=== PATIENT | female | born 1955 | race Caucasian/White ===

== ENCOUNTER 2017-05-13 10:11 | Emergency (ER) | payer MEDICAID ==
--- NOTE | 2017-05-13 10:24 | Emergency Department Record ---
History of Present Illness - General Chief Complaint: Dizziness Stated Complaint: DIZZY Time Seen by Provider: 05/13/17 10:22 Source: Patient Mode of Arrival: Ambulatory Limitations: No limitations - History of Present Illness Initial Comments: 61 yo female presents feeling dizzy at times. The symptoms started about 2-3 weeks ago. She saw her PCP at that time. She initially improved for several days. The symptoms returned on . She states turning her head to the left and sometimes tilting back causes the dizziness. No new headaches, vision changes, weakness, coordination changes, speech, or vision changes. She has had vertigo in the past. PCP is in [facility]. She has chronic neck pain that is unchanged. He symptoms are mild or gone if still then return with the position changes noted MD Complaint: Dizziness, Lightheadedness -: Days(s) (3) Timing: Sudden onset Description: Lightheadedness, "Room spinning", Sense of movement History of Same: Yes History of Trauma: No Severity: Moderate Improves With: Remaining still Worsens With: Movement Associated Symptoms: Denies other symptoms - [place] Coma Scale Eye Response: (4) Open spontaneously Motor Response: (6) Obeys commands Verbal Response: (5) Oriented Manny Total: 15 - Related Data Home Medications Medication Instructions Recorded Confirmed Last Taken Alendronate Sodium [Fosamax] 70 mg PO WEEKLY 05/13/17 05/13/17 05/11/17 Previous Rx's Medication Instructions Recorded Beclomethasone Dipropionate [Qvar] 1 puff IH BID #1 11/25/14 Hydrocodone/Acetaminophen [[place] 1 tab PO Q8H PRN #15 tab 09/09/15 5mg/325mg] Albuterol Sulfate [Proair Hfa] 1 - 2 puff IH .EVERY 4-6 HOURS PRN 09/16/15 #1 inhaler Allergies Allergy/AdvReac Type Severity Reaction Status Date / Time tramadol AdvReac Intermediate VOMITING Verified 05/13/17 10:18 Review of Systems Constitutional: Denies: Chills, Fever, Malaise, Weakness Eyes: Denies: Eye discharge, Eye pain, Photophobia, Vision change ENT: Denies: Congestion, Throat pain Respiratory: Denies: Cough, Dyspnea, Hemoptysis, Stridor, Wheezes Cardiovascular: Denies: Chest pain, Palpitations, Syncope Endocrine: Denies: Fatigue, Polydipsia Gastrointestinal: Denies: Abdominal pain, Constipation, Diarrhea, Hematemesis, Hematochezia Genitourinary: Denies: Dysuria, Frequency, Hematuria, Urgency Musculoskeletal: Denies: Arthralgia, Back pain, Joint swelling, Myalgia Skin: Denies: Bruising, Change in color, Rash Neurological: Reports: Vertigo. Denies: Abnormal gait, Confusion, Numbness, Paresthesias, Seizure, Tingling, Tremors Psychiatric: Denies: Anxiety Hematological/Lymphatic: Denies: Anemia, Blood Clots, Easy bleeding, Easy bruising, Swollen glands Past Medical History - SOCIAL HISTORY Smoking Status: Current every day smoker - RESPIRATORY Hx Respiratory Disorders: Yes Hx COPD: Yes Hx Pneumonia: Yes - CARDIOVASCULAR Hx Cardio Disorders: No - NEURO Hx Neuro Disorders: Yes Hx Headaches: Yes Hx Parkinson's Disease: Yes Hx TIA: Yes - GI Hx GI Disorders: Yes Hx Reflux: Yes - Hx Genitourinary Disorders: Yes Comment:: cyst on kidneys, occasionally pass blood through urine - ENDOCRINE Hx Endocrine Disorders: Yes Hx Thyroid Disease: Yes (cancer) - MUSCULOSKELETAL Hx Musculoskeletal Disorders: Yes Hx Osteoporosis: Yes - PSYCH Hx Psych Problems: No - HEMATOLOGY/ONCOLOGY Hx Hematology/Oncology Disorders: Yes Hx Anemia: Yes Hx Cancer: Yes (thyroid and lymph nodes) Hx Radiation Therapy: Yes Family Medical History Hx Cancer: Father, Mother, Brother/Sister Hx Seizures: Brother/Sister *Seizure Comment: brother had epilectic Physical Exam - General General Appearance: Alert, Oriented x3, Cooperative, No acute distress Limitations: No limitations - Head Head exam: Atraumatic, Normocephalic, Normal inspection - Eye Eye exam: Normal appearance, PERRL, EOMI, Nystagmus (rapid to the left, brief and fatigues). negative: Conjunctival injection, Periorbital swelling, Scleral icterus Pupils: Normal accommodation. negative: Irregular, Unequal - ENT ENT exam: Normal exam, Mucous membranes moist, Normal orophraynx, TM's normal bilaterally Ear exam: Normal external inspection Nasal Exam: Normal inspection Mouth exam: Normal external inspection Teeth exam: Normal inspection Throat exam: Normal inspection - Neck Neck exam: Normal inspection, Full ROM. negative: Tenderness - Respiratory Respiratory exam: Normal lung sounds bilaterally. negative: Respiratory distress - Cardiovascular Cardiovascular Exam: Regular rate, Normal rhythm, Normal heart sounds. negative : Diastolic murmur, Systolic murmur, Tachycardia Peripheral Pulses: 2+: Radial (R), Radial (L) - GI/Abdominal GI/Abdominal exam: Soft. negative: Tenderness - Rectal Rectal exam: Deferred - exam: Deferred - Extremities Extremities exam: Normal inspection, Full ROM, Normal capillary refill. negative: Tenderness - Back Back exam: Reports: Normal inspection, Full ROM. Denies: CVA tenderness (R), CVA tenderness (L), Muscle spasm, Rash noted, Tenderness - Neurological Neurological exam: Alert, CN II-XII intact, Normal gait, Oriented X3, Reflexes normal, Other (no PND, normal FTN, no dysmetria, steady gait). negative: Altered, Motor sensory deficit - Psychiatric Psychiatric exam: Normal affect, Normal mood. negative: Agitated, Anxious - Skin Skin exam: Dry, Intact, Normal color, Warm Course - Reevaluation(s) Reevaluation #1: The EMR was reviewed for prior visits Prior EKG reviewed 05/13/17 10:25 EMR reviewed. No prior imaging of head 05/13/17 10:38 Subacute 8mm hypodensity in the L internal capsule I informed the patient of the results She requests I call the hospital in [facility]. 05/13/17 12:00 05/13/17 12:19 I SW the patient's doctor, Dr Ortiz. He states that the patient has not had any comparison imaging to the head on his records. I enquired about transfer to [facility] as per the patient's request. He states that is not recommended due to no neurology. He stated if patient's have symptoms concerning for stroke there are routinely transferred out of [facility]. 05/13/17 12:32 EKG 12:22 NSR rate is 82, intervals normal, axis normal, ST no acute changes with non specific anterior T changes. No changes 08/2015. 05/13/17 12:47 The labs were reviewed. No acute changes on the CBC or CMP The patient selects [facility] for transfer. 05/13/17 12:[address] Coles of the [facility] ED He accepts the patient for further work up of the dizziness with the CT findings of possible subacute 8mm L internal capsule infarct Medical Decision Making - Lab Data Result diagrams: 05/13/17 12:05 05/13/17 12:05 Disposition Disposition: Transfer Clinical Impression: Dizziness Disposition: Acute Care Hospital Transfer Transfer To: [facility] Reason For Transfer: Dizziness Accepting Physician: Sanket Time Discussed w/Accepting Physician: 12:51 Condition: (2) Stable Instructions: Vertigo (ED), Dizziness (ED) Additional Instructions: Call your doctor first of the week for a recheck and close follow up Return if worse or any new symptoms or concerns. Forms: Patient Portal Access Time of Disposition: 12:51 Quality - Quality Measures Quality Measures: N/A - Blood Pressure Screening Does Patient Have Any of the Following: No Blood Pressure Classification: Pre-Hypertensive BP Reading Systolic Measurement: 127 Diastolic Measurement: 89 Screening for High Blood Pressure: < Pre-Hypertensive BP, F/U Documented > [ G8950] Pre-Hypertensive Follow-up Interventions: Referral to alternative/primary care provider.
[2017-05-13] MEDS ORDERED: MECLIZINE 25 MG TABLET PO ONE (10:35)
[2017-05-13] MEDS ORDERED: ASPIRIN 81 MG CHEWABLE TABLET PO ONE (12:03)
[2017-05-13 12:28] LABS: BASO % 0.6 % (0-6); EOS % 0.8 % (0-6); GRAN % 66.3 % (47-80); HEMATOCRIT 38.6 % (35.0-47.0); HEMOGLOBIN 13.1 gm/dl (11.6-16.0); LYMPH % 25.5 % (16-45); MEAN CELL VOLUME 91.9 fl (81-97); MEAN CORPUSCULAR HEMOGLOBIN 31.2 pg (27-33); MEAN CORPUSCULAR HGB CONC 33.9 g/dl (32-36); MEAN PLATELET VOLUME 10.7 fl (7.4-10.4); MONO % 6.8 % (0-9); PLATELET COUNT 139 K/uL (130-400); RED CELL DISTRIBUTION WIDTH 11.8 % (11.5-14.5); WHITE BLOOD COUNT W/O DIFF 6.5 K/uL (4.2-12.2)
[2017-05-13 12:38] LABS: INR 1.02
[2017-05-13 12:41] LABS: ALB/GLOB RATIO 1.9 (1.1-1.8); ALBUMIN 4.7 g/dL (4.0-5.0); ALKALINE PHOSPHATASE 67 U/L (35-104); ALT/SGPT 8 U/L (<33); AST/SGOT 16 U/L (10.0-35.0); BLOOD UREA NITROGEN 11 mg/dL (8-23); CREATININE 0.5 mg/dL (0.5-0.9); EST GLOMERULAR FILTRATION RATE > 60 mL/min; GLUCOSE,RANDOM 118 mg/dL (74-109); TOTAL PROTEIN 7.2 g/dL (6.6-8.7)
--- NOTE | 2017-05-15 07:25 | CT SCAN REPORT ---
DATE: 05/13/2017. EXAM: CT OF THE BRAIN WITHOUT CONTRAST. HISTORY: Lightheadedness and vertigo. TECHNIQUE: Sequential axial images were obtained from the foramen magna to the vertex without contrast administration. FINDINGS: There is a subacute/remote infarct of the anterior limb of the left internal capsule. The remainder of the brain and parenchyma appears normal. The orbits, paranasal sinuses, and mastoid air cells appear normal. IMPRESSION: 1. 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 THIS MEASURES 8.0 MM. 2. THE REMAINDER OF THE BRAIN APPEARS NORMAL. JOB NUMBER: [id number] MTDD
== END 2017-05-13 13:29 | disposition short-term general hospital (02) ==
LOC: ER 10:11
DX: I63.9 Cerebral infarction, unspecified (principal); R42 Dizziness and giddiness; F17.210 Nicotine dependence, cigarettes, uncomplicated; Z86.73 Personal history of transient ischemic attack (TIA), and cerebral infarction without residual deficits
CPT/HCPCS: 70450; 80053; 85025; 85610; 85730; 93005; 93010; 99285

== ENCOUNTER 2017-08-21 10:58 | Inpatient (IN) | payer MEDICAID ==
[2017-08-21] MEDS ORDERED: METHYLPREDNISOLONE PF 125MG/VIAL IVP ONE (11:08)
[2017-08-21] MEDS ORDERED: IPRATROPIUM/ALBUTEROL (0.5MG/3MG) NEB INH ONE (11:08)
--- NOTE | 2017-08-21 11:15 | Emergency Department Record ---
History of Present Illness - General Chief Complaint: Shortness of breath Stated Complaint: MARCELINA/COUGH Time Seen by Provider: 08/21/17 11:06 Source: Patient Mode of Arrival: Ambulatory Limitations: No limitations - History of Present Illness Initial Comments: The patient is here due to a one month hx of cough and SOB. She states the MARCELINA has been progressively worsening and now she is coughing up productive sputum. She denies any L sided CP, fever, chills, ST, or AP. She does have a hx of COPD and it feels similar to when she needed to stay in the hospital for her lung issues. She is on home O2 at 2 liters. She also is having anterior R sided CP with any coughing or deep breathing and twisting. MD Complaint: Cough Onset/Timin -: Month(s) Improves With: Nothing Worsens With: Nothing Known History Of: COPD, Other Associated Symptoms: Cough Treatments Prior to Arrival: None - Related Data Home Oxygen Therapy: Yes Home Oxygen Amount: 2 Liters Home Medications Medication Instructions Recorded Confirmed Last Taken Aspirin [Aspir-Low] 81 mg PO DAILY 08/21/17 08/21/17 Unknown Benzonatate [Tessalon] 1 cap PO Q8H PRN 08/21/17 08/21/17 Unknown Previous Rx's Medication Instructions Recorded Albuterol Sulfate [Proair Hfa] 1 - 2 puff IH .EVERY 4-6 HOURS PRN 09/16/15 #1 inhaler Allergies Allergy/AdvReac Type Severity Reaction Status Date / Time tramadol AdvReac Intermediate VOMITING Verified 08/21/17 11:04 Travel Screening - Travel/Exposure Within Last 30 Days Have you traveled within the last 30 days?: No Review of Systems Constitutional: Reports: Malaise. Denies: Chills, Fever Eyes: Denies: Eye discharge ENT: Reports: Congestion Respiratory: Reports: Cough, Dyspnea, Wheezes. Denies: Hemoptysis, Stridor Cardiovascular: Reports: Dyspnea on exertion. Denies: Arrhythmia, Chest pain Endocrine: Denies: Fatigue Gastrointestinal: Denies: Diarrhea Genitourinary: Denies: Dysuria Musculoskeletal: Denies: Back pain Past Medical History - SOCIAL HISTORY Smoking Status: Former smoker Alcohol Use: None Drug Use: None - RESPIRATORY Hx Respiratory Disorders: Yes Hx COPD: Yes Hx Pneumonia: Yes Comment:: emphysema - CARDIOVASCULAR Hx Cardio Disorders: No - NEURO Hx Neuro Disorders: Yes Hx Headaches: Yes Hx Parkinson's Disease: Yes Hx TIA: Yes - GI Hx GI Disorders: Yes Hx Reflux: Yes - Hx Genitourinary Disorders: Yes - ENDOCRINE Hx Endocrine Disorders: Yes Hx Thyroid Disease: Yes (cancer) - MUSCULOSKELETAL Hx Musculoskeletal Disorders: Yes Hx Osteoporosis: Yes - PSYCH Hx Psych Problems: No - HEMATOLOGY/ONCOLOGY Hx Hematology/Oncology Disorders: Yes Hx Anemia: Yes Hx Cancer: Yes (thyroid and lymph nodes) Hx Radiation Therapy: Yes Family Medical History Any Significant Family History?: Yes Hx Cancer: Father, Mother, Brother/Sister Hx Seizures: Brother/Sister *Seizure Comment: brother had epilectic Physical Exam - General General Appearance: Alert, Oriented x3, Cooperative, Mild distress (due to SOB.) - Head Head exam: Atraumatic, Normocephalic, Normal inspection - Eye Eye exam: Normal appearance - ENT Throat exam: Normal inspection. negative: Tonsillar erythema, Tonsillar exudate - Neck Neck exam: Normal inspection, Full ROM. negative: Tenderness - Respiratory Respiratory exam: Accessory muscle use (mild.), Chest wall tenderness (The R anterior chest wall pain is 100% reproducible with palpation.), Decreased breath sounds (mild.), Prolonged expiratory (mildly.), Respiratory distress, Wheezes (all lung farmer.). negative: Normal lung sounds bilaterally - Cardiovascular Cardiovascular Exam: Normal rhythm, Normal heart sounds, Tachycardia - GI/Abdominal GI/Abdominal exam: Soft, Normal bowel sounds. negative: Tenderness - Extremities Extremities exam: Normal inspection, Full ROM, Normal capillary refill. negative: Tenderness - Neurological Neurological exam: Alert. negative: Motor sensory deficit Course Vital Signs 08/21/17 11:00 Pulse Rate 109 H Respiratory 32 H Rate Blood Pressure 165/112 Pulse Ox 91 L - Reevaluation(s) Reevaluation #1: The patient is doing a little better but is still coughing and dyspneic. Her RR has improved and her HR is lower. 08/21/17 11:57 Reevaluation #2: The patient is still dyspneic and wheezing on exam. She does not feel much better at this time. Due to her condition I did recommend hospital admission for further respiratory care and IV Abx's and she did agree. On exam her lungs are still tight with bilateral lower lobe wheezing. 08/21/17 12:15 Reevaluation #3: 08/21/17 12:20 I did discuss the case with Clary (IZABELA) and she does accept the admission for Dr. Young. Medical Decision Making - Data Complexity MDM Data: Labs Ordered and/or Reviewed, X-Ray Ordered and/or Reviewed, EKG Ordered and/or Reviewed - Lab Data Result diagrams: 08/21/17 11:11 08/21/17 11:11 - EKG Data -: EKG Interpreted by Me EKG: No Acute Changes, Unchanged From Previous - Radiology Data Radiology results: Report reviewed (CXR: Severe COPD, possible worsening of the lower lobe chronic interstitial reticular nodular pattern bilaterally.) Disposition Disposition: Admit Clinical Impression: COPD (chronic obstructive pulmonary disease) Qualifiers: COPD type: unspecified COPD Qualified Code(s): J44.9 - Chronic obstructive pulmonary disease, unspecified Pneumonia Qualifiers: Pneumonia type: due to unspecified organism Laterality: bilateral Lung location : lower lobe of lung Qualified Code(s): J18.9 - Pneumonia, unspecified organism Disposition: Still a Patient at [facility] Decision to Admit: Admit from ER Decision to Admit Date: 08/21/17 Decision to Admit Time: 12:20 Accepting Physician: Hector Time Discussed w/Accepting Physician: 12:20 Condition: (2) Stable Time of Disposition: 12:20 Quality - Quality Measures Quality Measures: N/A - Blood Pressure Screening View Details: Yes Does Patient Have Any of the Following: No Blood Pressure Classification: Hypertensive Reading Systolic Measurement: 165 Diastolic Measurement: 112 Screening for High Blood Pressure: < Pre-Hypertensive BP, F/U Documented > [ G8950] Pre-Hypertensive Follow-up Interventions: Referral to alternative/primary care provider.
[2017-08-21 11:17] LABS: BASO % 0.1 % (0-6); EOS % 0.1 % (0-6); GRAN % 79.5 % (47-80); HEMOGLOBIN 12.6 gm/dl (11.6-16.0); LYMPH % 11.2 % (16-45); MEAN CELL VOLUME 92.2 fl (81-97); MEAN CORPUSCULAR HEMOGLOBIN 29.8 pg (27-33); MEAN CORPUSCULAR HGB CONC 32.3 g/dl (32-36); MEAN PLATELET VOLUME 10.4 fl (7.4-10.4); MONO % 9.1 % (0-9); PLATELET COUNT 216 K/uL (130-400); RED BLOOD COUNT 4.23 M/uL (3.80-5.40); RED CELL DISTRIBUTION WIDTH 12.2 % (11.5-14.5); WHITE BLOOD COUNT W/O DIFF 14.1 K/uL (4.2-12.2)
[2017-08-21 11:31] LABS: BLOOD UREA NITROGEN 13 mg/dL (8-23)
[2017-08-21 11:32] LABS: CREATININE 0.5 mg/dL (0.5-0.9); EST GLOMERULAR FILTRATION RATE > 60 mL/min
[2017-08-21 11:34] LABS: GLUCOSE,RANDOM 108 mg/dL (74-109)
[2017-08-21] MEDS ORDERED: ALBUTEROL SULFATE (0.083%) 2.5 MG/3 ML NEB INH ONE ×2 (11:35→11:39)
[2017-08-21 11:48] LABS: CKMB 1.6 ng/mL (<3.77); CREATINE PHOSPHOKINASE 39 U/L (26-192)
[2017-08-21] MEDS ORDERED: CEFTRIAXONE SODIUM 1 GM in 0.9 % SODIUM CHLORIDE 100ML 100 ML IVPB ONE (12:12)
[2017-08-21] MEDS ORDERED: AZITHROMYCIN 500 MG in 0.9 % SODIUM CHLORIDE 250ML 250 ML IVPB ONE (12:13)
[2017-08-21] MEDS ORDERED: MAGNESIUM SULFATE 16 MEQ in 0.9 % SODIUM CHLORIDE 100ML 100 ML IV ONE (12:15)
[2017-08-21] MEDS ORDERED: ONDANSETRON HCL IV 4 MG/2 ML VIAL IVP ONE (12:24)
[2017-08-21] MEDS ORDERED: AZITHROMYCIN 500 MG in 0.9 % SODIUM CHLORIDE 250ML 250 ML IVPB SCH (14:26)
[2017-08-21] MEDS ORDERED: IBUPROFEN 400 MG TABLET PO PRN (14:26)
[2017-08-21] MEDS: IPRATROPIUM/ALBUTEROL (0.5MG/3MG) NEB INH SCH ×3 (14:42→21:46)
--- NOTE | 2017-08-21 15:11 | RADIOLOGY REPORT ---
EXAM: CHEST, TWO VIEWS HISTORY: DIFFICULTY IN BREATHING. MALAISE FOR ONE MONTH. COPD. TECHNIQUE: Upright PA and lateral views of the chest were obtained. Comparison: Two view chest radiographic examination dated 09/16/15. FINDINGS: The heart is not enlarged and the pulmonary vasculature is nondilated. There is marked hyperinflation of the lungs consistent with COPD. Mixed primarily reticular nodular opacities are noted in the lower lungs more pronounced than on the 09/16/15 examination. This may relate to progression of chronic interstitial changes though acute infiltrate or less likely edema superimposed on chronic interstitial change would be difficult to exclude. No gross lung consolidation nor pneumothorax. The costophrenic angles are somewhat blunted though this likely relates to hyperinflation. Post surgical changes are noted within the midline neck base. There are degenerative changes scattered throughout the visualized spine. IMPRESSION: 1. SEVERE HYPERINFLATION OF THE LUNGS CONSISTENT WITH COPD. 2. MIXED PRIMARILY RETICULAR NODULAR OPACITIES WITHIN THE LOWER LUNGS MORE PRONOUNCED THAN ON THE 09/16/15 EXAMINATION. THIS MAY RELATE TO PROGRESSION OF CHRONIC INTERSTITIAL CHANGE THOUGH A COMBINATION OF CHRONIC INTERSTITIAL CHANGE AND ACUTE INFILTRATE OR ATELECTASIS WOULD BE DIFFICULT TO EXCLUDE. JOB NUMBER: [id number] [facility]
[2017-08-21] MEDS: TOPIRAMATE 25MG TABLET PO SCH ×2 (16:38→21:48)
[2017-08-21] MEDS: PANTOPRAZOLE SODIUM 40 MG TABLET PO SCH (16:38)
[2017-08-21] MEDS: BENZONATATE 100 MG CAPSULE PO PRN (16:39)
[2017-08-21] MEDS: SIMVASTATIN 20 MG TABLET PO SCH (21:48)
[2017-08-21] MEDS: CEFTRIAXONE SODIUM 1 GM in 0.9 % SODIUM CHLORIDE 100ML 100 ML IVPB SCH (22:10)
[2017-08-22] MEDS: IPRATROPIUM/ALBUTEROL (0.5MG/3MG) NEB INH SCH ×5 (06:20→21:20)
[2017-08-22 06:39] LABS: HEMATOCRIT 33.4 % (35.0-47.0); HEMOGLOBIN 10.9 gm/dl (11.6-16.0); MEAN CELL VOLUME 92.5 fl (81-97); MEAN CORPUSCULAR HGB CONC 32.6 g/dl (32-36); MEAN PLATELET VOLUME 10.5 fl (7.4-10.4); PLATELET COUNT 192 K/uL (130-400); RED BLOOD COUNT 3.61 M/uL (3.80-5.40); RED CELL DISTRIBUTION WIDTH 12.3 % (11.5-14.5); WHITE BLOOD COUNT W/O DIFF 14.7 K/uL (4.2-12.2)
[2017-08-22 06:40] LABS: MEAN CORPUSCULAR HEMOGLOBIN 30.1 pg (27-33)
[2017-08-22] MEDS: LEVOTHYROXINE SODIUM 150 MCG TABLET PO SCH (06:47)
[2017-08-22] MEDS: PANTOPRAZOLE SODIUM 40 MG TABLET PO SCH ×2 (06:47→16:13)
[2017-08-22] MEDS: BENZONATATE 100 MG CAPSULE PO PRN (06:48)
[2017-08-22 06:58] LABS: ALB/GLOB RATIO 1.6 (1.1-1.8); ALBUMIN 4.3 g/dL (4.0-5.0); ALKALINE PHOSPHATASE 53 U/L (35-104); ALT/SGPT 8 U/L (<33); AST/SGOT 13 U/L (10.0-35.0); BLOOD UREA NITROGEN 16 mg/dL (8-23); CREATININE 0.5 mg/dL (0.5-0.9); EST GLOMERULAR FILTRATION RATE > 60 mL/min; GLUCOSE,RANDOM 104 mg/dL (74-109)
[2017-08-22] MEDS: ACETAMINOPHEN 500 MG TABLET PO PRN (07:59)
[2017-08-22] MEDS: CEFTRIAXONE SODIUM 1 GM in 0.9 % SODIUM CHLORIDE 100ML 100 ML IVPB SCH ×2 (09:48→23:21)
[2017-08-22] MEDS: ASPIRIN 81 MG TABEC PO SCH (09:48)
[2017-08-22] MEDS: TOPIRAMATE 25MG TABLET PO SCH ×3 (09:49→23:20)
[2017-08-22] MEDS ORDERED: METHYLPREDNISOLONE PF 125MG/VIAL IVP SCH (10:00)
[2017-08-22] MEDS: AZITHROMYCIN 500 MG in 0.9 % SODIUM CHLORIDE 250ML 250 ML IVPB SCH (12:17)
[2017-08-22] MEDS: METHYLPREDNISOLONE PF 125MG/VIAL IVP SCH ×2 (16:13→23:20)
[2017-08-22] MEDS: ENOXAPARIN 40 MG/0.4 ML SYR SQ SCH (16:15)
[2017-08-22] MEDS: SIMVASTATIN 20 MG TABLET PO SCH (23:19)
[2017-08-23] MEDS: IPRATROPIUM/ALBUTEROL (0.5MG/3MG) NEB INH SCH ×2 (05:40→09:15)
[2017-08-23] MEDS: LEVOTHYROXINE SODIUM 150 MCG TABLET PO SCH (06:17)
[2017-08-23] MEDS: METHYLPREDNISOLONE PF 125MG/VIAL IVP SCH (06:17)
[2017-08-23] MEDS: PANTOPRAZOLE SODIUM 40 MG TABLET PO SCH (06:17)
[2017-08-23] MEDS: BENZONATATE 100 MG CAPSULE PO PRN (06:57)
[2017-08-23] MEDS: ASPIRIN 81 MG TABEC PO SCH (09:09)
[2017-08-23] MEDS: TOPIRAMATE 25MG TABLET PO SCH (09:09)
[2017-08-23] MEDS: ENOXAPARIN 40 MG/0.4 ML SYR SQ SCH (09:09)
[2017-08-23] MEDS: CEFTRIAXONE SODIUM 1 GM in 0.9 % SODIUM CHLORIDE 100ML 100 ML IVPB SCH (09:10)
[2017-08-23] MEDS: ACETAMINOPHEN 500 MG TABLET PO PRN (09:12)
[2017-08-23] MEDS: AZITHROMYCIN 500 MG in 0.9 % SODIUM CHLORIDE 250ML 250 ML IVPB SCH (10:26)
--- NOTE | 2017-08-23 11:10 | History and Physical Report ---
DATE: 08/22/2017 at 1 p.m., physical done. CHIEF COMPLAINT: Cough, dyspnea, pneumonia, COPD. HISTORY OF PRESENT ILLNESS: This 62-year-old female states she has had a cough for about a month but much worse in the last 2 days. She uses home oxygen at 2L/min. She has been using that for one year. She was seen in the emergency department by Dr. Grant and admitted to the hospital for pneumonia, COPD, and hypoxia on oxygen. PAST MEDICAL HISTORY: COPD, GERD, hypercholesterolemia, migraines, hypothyroidism, osteoporosis. She also has had TIAs and Parkinson disease. Thoracic cancer, arthritis. She had thyroid and lymph node radiation. PAST SURGICAL HISTORY: Hysterectomy, appendectomy, breast biopsy x2. MEDICATIONS: 1. Topamax 1 tablet t.i.d. 2. Simvastatin 1 at bedtime. 3. Omeprazole 20 mg b.i.d. 4. Levothyroxine 150 mcg daily. 5. Vitamin D3, 50,000 units weekly. 6. Tessalon 1 capsule q.8 h. p.r.n. 7. Aspirin 81 mg daily. 8. Alendronate 70 mg weekly. 9. ProAir 2 puffs every 4-6 hours. ALLERGIES: TRAMADOL. FAMILY/PSYCHOSOCIAL HISTORY: Father, mother, brother, and sister had cancer. Brother and sister had seizures. Brother had epilepsy. She is a former cigarette smoker, quit in 2017. No alcohol or drug use. REVIEW OF SYSTEMS: HEENT: She has congestion and cough worse in the last 2 or 3 days but has had a cough for a month. Cardiovascular: No chest pain, palpitations, or arrhythmia. Respiratory: See Chief Complaint. She is coughing, congested, wheezing. Gastrointestinal: No nausea, vomiting, diarrhea, black stools, or bloody stools. Genitourinary: No dysuria, hematuria, frequency, or burning on urination. Musculoskeletal: No joint or bone abnormalities. Neurological: No CVA, paralysis, or paresthesias. Endocrine: No diabetes but she has hypothyroidism. Integument: No rash, ulcers, change in moles, or yellow skin. PHYSICAL EXAMINATION: VITALS: Height 5 feet 3 inches, weight 97 pounds. Temperature 97.7, pulse 71, blood pressure 113/70, respiratory rate 17, pulse ox 97% on room air. HEENT: Pupils are equal, round, and reactive to light and accommodation. Extraocular muscles are intact. Throat is clear. Nose is clear. Tympanic membranes are shen. NECK: Supple. No jugular venous distention. No hepatojugular reflux. No carotid bruits. Thyroid is smooth. CARDIOVASCULAR: Regular rate and rhythm without murmurs, clicks, rubs, or gallops. RESPIRATORY: Clear to auscultation and percussion. There is wheezing bilaterally on deep inspiration. ABDOMEN: Soft, nontender. No hepatosplenomegaly, no masses, no tenderness. Bowel sounds are active. No bruits. EXTREMITIES: No pitting edema. No cyanosis, no clubbing. Full range of motion. Peripheral pulses are good. BREASTS: Deferred. GYNECOLOGICAL: Exam deferred. RECTAL: Exam deferred. NEUROLOGIC: Cranial nerves II-XII intact. No gross defects. Sensation normal, strength normal. Deep tendon reflexes equal bilaterally with Babinski negative. MENTAL STATUS: Alert and oriented x3. IMPRESSION: 1. Pneumonia. 2. 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 3. Hypoxia with home oxygen at 2L/min nasal cannula for the last year. 4. Gastroesophageal reflux disease. 5. History of thyroid cancer. 6. History of hypercholesterolemia. 7. History of Parkinson disease. PLAN: IV Rocephin, azithromycin, and Solu-Medrol. MTDD
[2017-08-23] MEDS ORDERED: PREDNISONE 20 MG TAB PO ONE (13:11)
--- NOTE | 2017-08-23 13:20 | Discharge Note ---
VTE H&P Assessment - Risk for VTE Risk for VTE: Yes Risk Level: Low Risk Assessment Date: 08/22/17 Risk Assessment Time: 13:00 VTE Orders Placed or Will Be Placed: Yes Discharge Medications - Discharge Medications Home Medications: Ambulatory Orders Cholecalciferol (Vitamin D3) [Vitamin D3] 50,000 unit PO WEEKLY 09/28/14 [Last Taken 05/13/17] Omeprazole [Prilosec] 20 mg PO BID 09/28/14 [Last Taken 05/13/17] Simvastatin 1 tab PO QHS 09/28/14 [Last Taken 05/13/17] Topiramate 1 tab PO TID 09/28/14 [Last Taken 05/13/17] Levothyroxine Sodium [Synthroid] 150 mcg PO DAILY 06/21/15 [Last Taken 05/13/17] Albuterol Sulfate [Proair Hfa] 1 - 2 puff IH .EVERY 4-6 HOURS PRN #1 inhaler 10/27 [Last Taken 05/13/17] Alendronate Sodium [Fosamax] 70 mg PO WEEKLY 05/13/17 [Last Taken 05/11/17] Aspirin [Aspir-Low] 81 mg PO DAILY 08/21/17 [Last Taken Unknown] Azithromycin [Zithromax] 500 mg PO DAILY #10 tab 08/23/17 [Last Taken Unknown] Cephalexin [Keflex] 500 mg PO QID #40 cap 08/23/17 [Last Taken Unknown] Ibuprofen [Motrin] 400 mg PO Q8H PRN tablet 08/23/17 [Last Taken Unknown] Ipratropium/Albuterol [Duoneb] 3 ml INH RESP.Q4H.WA #120 ampul.neb 08/23/17 [ Last Taken Unknown] Prednisone [Prednisone 10Mg] 10 mg PO ASDIR #30 tab 08/23/17 [Last Taken Unknown ] Discharge Note - Date Date of Discharge Note: 08/23/17 Disposition: Home, Self-Care Condition: (2) Stable Additional Instructions: follow up with Dr. Ortiz in one week robitussin DM 10 ml every 4 fours continue home oxygen 2 liters per minute Prescriptions: Azithromycin [Zithromax] 500 mg PO DAILY #10 tab Cephalexin [Keflex] 500 mg PO QID #40 cap Ipratropium/Albuterol [Duoneb] 3 ml INH RESP.Q4H.WA #120 ampul.neb Prednisone [Prednisone 10Mg] 10 mg PO ASDIR #30 tab Forms: Patient Portal Access Activity at Discharge: Increase Activity as Tolerated
--- NOTE | 2017-08-24 12:40 | Discharge Summary ---
DATE OF ADMISSION: 08/21/2017 DATE OF DISCHARGE: 08/23/2017 DISCHARGE DIAGNOSES: 1. Pneumonia. 2. COPD. 3. Interstitial lung disease. 4. Hypoxia, on oxygen at 2 liters per minute nasal cannula. 5. Status post hypothyroidism. 6. Status post hypercholesterolemia. 7. Status post GERD. 8. Status post Parkinson's disease. 9. Status post history of thyroid cancer. ATTENDING PHYSICIAN: Sam Peterson DO REASON FOR HOSPITALIZATION: Cough, dyspnea, [id number]. HISTORY: This 62-year-old female stated that she had a cough for about a month, but worse in the last 2 days. She uses home oxygen at 2 liters per minute nasal cannula for about the last year. She was seen in the Emergency Department by Dr. Grant and admitted to the hospital for pneumonia, COPD, hypoxia, and placed on oxygen therapy. SIGNIFICANT FINDINGS: Chest x-ray showing severe hyperinflation of the lungs consistent with COPD. Mixed primary reticular nodular opacities within the lower lungs, more pronounced on 09/16/2015. This may relate to progression of chronic interstitial changes, although a combination of chronic interstitial change and acute infiltrate or atelectasis would be difficult to exclude. EKG showing sinus tachycardia. No acute ST/T-wave changes. LABORATORY: WBC was 14,100, hemoglobin was 12.6, dropped down to 10.9 after hydration. Potassium was 3.9, BUN is 16, creatinine is 0.5. Cardiac enzymes x 1 were negative. THERAPY PROVIDED: The patient was placed on Rocephin 1 gram every 12 hours, azithromycin 500 mg daily, Solu-Medrol initially 125 in the ER then 60 mg every 8 hours switched over to oral prednisone, and Keflex and azithromycin on discharge. She had oxygen therapy. She also had breathing treatments with DuoNebs every 4 hours and albuterol every 1 hour p.r.n. She had DVT prophylaxis of Lovenox, and she continued her home medications. HOSPITAL COURSE: Gradually improved. CONDITION AT DISCHARGE: Improved, but still not completely better, and [id number] if she walks a distance. DISCHARGE INSTRUCTIONS: Follow up with Dr. Ortiz in 1 week. Robitussin-DM 10 mL every 4 hours. Continue the home oxygen at 2 liters per minute. Azithromycin 500 mg for 10 days. Keflex 500 q.i.d. for 10 days. DuoNebs every 4 hours while awake. If she cannot afford a DuoNeb with her insurance, I would just use albuterol every 4 hours while awake. Prednisone 40 mg a day for 3 days, then 30 mg a day for 3 days, then 20 mg a day for 3 days, and then 10 mg a day for 3 days. Increase activity as tolerated. MTDD
== END 2017-08-23 15:15 | disposition home or self-care (01) | DRG 194 ==
LOC: ER 10:58 → MEDSURG 13:58
PROVIDERS: ADMIT Internal Medicine; ATTEND Emergency Medicine
DX: J18.9 Pneumonia, unspecified organism (principal); J44.1 Chronic obstructive pulmonary disease with (acute) exacerbation; J84.10 Pulmonary fibrosis, unspecified; K21.9 Gastro-esophageal reflux disease without esophagitis; Z85.850 Personal history of malignant neoplasm of thyroid; E78.00 Pure hypercholesterolemia, unspecified; G20 Parkinson's disease; E03.9 Hypothyroidism, unspecified; Z87.891 Personal history of nicotine dependence
CPT/HCPCS: 71046; 80048; 80053; 82550; 82553; 84484; 85025; 85027; 93005; 93010; 94640; 94761; 96365; 96366; 96368; 96375; 99223; 99239; 99285; J0456; J1650; J2405; J2930; J7050; J7512; J7613

== ENCOUNTER 2018-08-24 10:37 | Emergency (ER) | payer MEDICAID ==
--- NOTE | 2018-08-24 11:05 | Emergency Department Record ---
History of Present Illness - General Chief Complaint: Cough Stated Complaint: BRONCHITIS Time Seen by Provider: 08/24/18 10:54 Source: Patient Mode of Arrival: Ambulatory - History of Present Illness Initial Comments: the patient states that she has had cold symptoms for about one week. She has COPD and is on home O2 for the past 2 years. She states her sputum has changed color to yellow for the past 2 days, and that her right chest hurts when she coughs. She denies fevers, but feels chilled. Monday night, 2 nights ago, she states she was on the phone, got up to hang up the phone, and became dizzy with the room spinning. She hit her right shoulder and right orbit on the bed and the bedpost. She denies any vision changes, eye pain, or difficulty with ROM of her shoulder, "I know they are just bruised and don't need x-rays." She has not been dizzy since then. She states that one year ago she had pneumonia and was hospitalized here. She denies KS, PE, DVT, history. She has had mini strokes in the past. She is a former heavy smoker who quit 2 years ago. Complaint: Cough, Rhinorrhea Onset/Timin -: Week(s) Severity: Mild Severity scale (1-10): 3 - Related Data Previous Rx's Medication Instructions Recorded Albuterol Sulfate [Proair Hfa] 1 - 2 puff IH .EVERY 4-6 HOURS PRN 09/16/15 #1 inhaler Ibuprofen [Motrin] 400 mg PO Q8H PRN tablet 08/23/17 Ipratropium/Albuterol [Duoneb] 3 ml INH RESP.Q4H.WA #120 ampul.neb 08/23/17 Azithromycin [Zithromax] 250 mg PO DAILY #6 tab 08/24/18 Prednisone [Prednisone 20Mg] 20 mg PO DAILY #20 tab 08/24/18 Allergies Allergy/AdvReac Type Severity Reaction Status Date / Time tramadol AdvReac Intermediate VOMITING Verified 08/21/17 11:04 Travel Screening - Travel/Exposure Within Last 30 Days Have you traveled within the last 30 days?: No - Travel Symptoms Symptom Screening: None Review of Systems Reviewed: No additional complaints except as noted below Constitutional: Reports: As per HPI. Denies: Chills, Fever, Malaise, Night sweats, Weakness, Weight change Eyes: Reports: As per HPI. Denies: Eye discharge, Eye pain, Photophobia, Vision change ENT: Reports: As per HPI. Denies: Congestion, Dental pain, Ear pain, Epistaxis , Hearing loss, Throat pain Respiratory: Reports: As per HPI. Denies: Cough, Dyspnea, Hemoptysis, Stridor, Wheezes Cardiovascular: Reports: As per HPI. Denies: Arrhythmia, Chest pain, Dyspnea on exertion, Edema, Murmurs, Orthopnea, Palpitations, Paroxysmal nocturnal dyspnea, Rheumatic Fever, Syncope Endocrine: Reports: As per HPI. Denies: Fatigue, Heat or cold intolerance, Polydipsia, Polyuria Gastrointestinal: Reports: As per HPI. Denies: Abdominal pain, Constipation, Diarrhea, Hematemesis, Hematochezia, Melena, Nausea, Vomiting Genitourinary: Reports: As per HPI. Denies: Abnormal menses, Discharge, Dyspareunia, Dysuria, Frequency, Hematuria, Incontinence, Retention, Urgency Musculoskeletal: Reports: As per HPI. Denies: Arthralgia, Back pain, Gout, Joint swelling, Myalgia, Neck pain Skin: Reports: As per HPI. Denies: Bruising, Change in color, Change in hair/ nails, Lesions, Pruritus, Rash Neurological: Reports: As per HPI. Denies: Abnormal gait, Confusion, Headache, Numbness, Paresthesias, Seizure, Tingling, Tremors, Vertigo, Weakness Psychiatric: Reports: As per HPI. Denies: Anxiety, Auditory hallucinations, Depression, Homicidal thoughts, Suicidal thoughts, Visual hallucinations Hematological/Lymphatic: Reports: As per HPI. Denies: Anemia, Blood Clots, Easy bleeding, Easy bruising, Swollen glands Past Medical History - SOCIAL HISTORY Smoking Status: Former smoker Alcohol Use: None Drug Use: None - RESPIRATORY Hx Respiratory Disorders: Yes Hx COPD: Yes Hx Pneumonia: Yes Comment:: emphysema,wears oxygen cont - CARDIOVASCULAR Hx Cardio Disorders: No - NEURO Hx Neuro Disorders: Yes Hx Headaches: Yes Hx Parkinson's Disease: Yes (2000) Hx TIA: Yes Comment:: pt states hx mini stroke - GI Hx GI Disorders: Yes Hx Reflux: Yes - Hx Genitourinary Disorders: Yes Comment:: cyst on kidneys, occasionally pass blood through urine - ENDOCRINE Hx Endocrine Disorders: Yes Hx Thyroid Disease: Yes (cancer) - MUSCULOSKELETAL Hx Musculoskeletal Disorders: Yes Hx Osteoporosis: Yes - PSYCH Hx Psych Problems: No - HEMATOLOGY/ONCOLOGY Hx Hematology/Oncology Disorders: Yes Hx Anemia: Yes Hx Cancer: Yes (thyroid and lymph nodes) Hx Radiation Therapy: Yes Family Medical History Any Significant Family History?: Yes Hx Cancer: Father, Mother, Brother/Sister Hx Seizures: Brother/Sister *Seizure Comment: brother had epilectic Physical Exam - General General Appearance: Alert, Oriented x3, Cooperative, No acute distress (speaks full sentences without difficulty, cachectic and frail on home oxygen) - Head Head exam: Normal inspection - Eye Eye exam: Normal appearance, PERRL, EOMI. negative: Conjunctival injection, Nystagmus Pupils: Normal accommodation - ENT ENT exam: Normal exam, Mucous membranes moist, Normal external ear exam, Normal orophraynx, TM's normal bilaterally Ear exam: Normal external inspection. negative: External canal tenderness Nasal Exam: Normal inspection. negative: Discharge, Sinus tenderness Mouth exam: Normal external inspection, Tongue normal Teeth exam: Normal inspection. negative: Dental caries Throat exam: Normal inspection. negative: Tonsillar erythema, Tonsillar exudate - Neck Neck exam: Normal inspection, Full ROM. negative: Lymphadenopathy, Meningismus , Tenderness - Respiratory Respiratory exam: Decreased breath sounds, Prolonged expiratory, Other (oxygen 2 liters nasal cannula). negative: Accessory muscle use, Chest wall tenderness , Respiratory distress - Cardiovascular Cardiovascular Exam: Regular rate, Normal rhythm, Normal heart sounds - GI/Abdominal GI/Abdominal exam: Soft, Normal bowel sounds. negative: Tenderness - Rectal Rectal exam: Deferred - exam: Deferred - Extremities Extremities exam: Normal inspection, Full ROM, Normal capillary refill. negative: Calf tenderness, Pedal edema, Tenderness - Back Back exam: Reports: Normal inspection, Full ROM. Denies: CVA tenderness (R), CVA tenderness (L), Muscle spasm, Rash noted, Tenderness - Neurological Neurological exam: Alert, CN II-XII intact, Normal gait, Oriented X3, Reflexes normal. negative: Motor sensory deficit - Psychiatric Psychiatric exam: Normal affect, Normal mood - Skin Skin exam: Dry, Intact, Normal color, Warm Course Vital Signs 08/24/18 10:40 Temperature 97.4 F L Pulse Rate 83 Respiratory 18 Rate Blood Pressure 119/78 Pulse Ox 97 - Reevaluation(s) Reevaluation #1: 08/24/18 13:15 Patient is feeling better and ready for DC home. She states she usally gets a prednisone taper and zPack when she is like this. She will follow up with her PCP next week as needd. Medical Decision Making - Management Options MDM Management: No Additional Work-up Planned - Data Complexity MDM Data: Labs Ordered and/or Reviewed, X-Ray Ordered and/or Reviewed (CXR Negative for acute abnormality per Radiologist. Hyperinflation.), EKG Ordered and/or Reviewed - Lab Data Result diagrams: 08/24/18 11:49 08/24/18 11:49 Disposition Disposition: Discharge Clinical Impression: Bronchitis COPD (chronic obstructive pulmonary disease) Qualifiers: COPD type: COPD with acute exacerbation Qualified Code(s): J44.1 - Chronic obstructive pulmonary disease with (acute) exacerbation Disposition: Home, Self-Care Condition: (2) Stable Instructions: Cold Symptoms (ED) Additional Instructions: Take antibiotics as directed until gone. Continue present meds and nebulizers as instructed. Take prednisone taper as directed: 3 pills daily for 3 days, 2 pills daily for 3 days, 1 pill daily for 3 days, then 1/2 pill daily for 4 days and stop. Follow up with your PCP next week as needed. Prescriptions: Azithromycin [Zithromax] 250 mg PO DAILY #6 tab Prednisone [Prednisone 20Mg] 20 mg PO DAILY #20 tab Quality - Quality Measures Quality Measures: N/A - Blood Pressure Screening Does Patient Have Any of the Following: No Blood Pressure Classification: Normal BP Reading Systolic Measurement: 119 Diastolic Measurement: 78 Screening for High Blood Pressure: < Normal BP, F/U Not Required > [[id number]]
[2018-08-24] MEDS ORDERED: IPRATROPIUM/ALBUTEROL (0.5MG/3MG) NEB INH ONE (11:07)
[2018-08-24] MEDS ORDERED: METHYLPREDNISOLONE PF 125MG/VIAL IVP ONE (11:07)
[2018-08-24 11:52] LABS: HEMATOCRIT 40.4 % (35.0-47.0); HEMOGLOBIN 13.1 gm/dl (11.6-16.0); MEAN CELL VOLUME 95.3 fl (81-97); MEAN CORPUSCULAR HEMOGLOBIN 30.9 pg (27-33); MEAN CORPUSCULAR HGB CONC 32.4 g/dl (32-36); PLATELET COUNT 140 K/uL (130-400); RED BLOOD COUNT 4.24 M/uL (3.80-5.40); RED CELL DISTRIBUTION WIDTH 11.9 % (11.5-14.5); WHITE BLOOD COUNT W/O DIFF 12.1 K/uL (4.2-12.2)
[2018-08-24 12:01] LABS: BLOOD UREA NITROGEN 12 mg/dL (8-23); CREATININE 0.6 mg/dL (0.5-0.9); EST GLOMERULAR FILTRATION RATE > 60 mL/min; TOTAL PROTEIN 8.2 g/dL (6.6-8.7)
[2018-08-24 12:03] LABS: URINE APPEARANCE CLEAR; URINE BILIRUBIN NEGATIVE (NEGATIVE); URINE BLOOD TRACE-I (NEGATIVE); URINE COLOR YELLOW; URINE GLUCOSE (UA) NEGATIVE (NEGATIVE); URINE KETONE TRACE (NEGATIVE); URINE LEUKOCYTE ESTERASE NEGATIVE (NEGATIVE); URINE NITRITE NEGATIVE (NEGATIVE); URINE PROTEIN NEGATIVE (NEGATIVE)
[2018-08-24 12:03] LABS: GLUCOSE,RANDOM 85 mg/dL (74-109)
[2018-08-24 12:06] LABS: ALB/GLOB RATIO 1.6 (1.1-1.8); ALBUMIN 5.1 g/dL (4.0-5.0); ALKALINE PHOSPHATASE 68 U/L (45-87); ALT/SGPT 7 U/L (<33); AST/SGOT 14 U/L (10.0-35.0)
[2018-08-24 12:15] LABS: URINE BACTERIA NONE SEEN; URINE EPITHELIAL CELLS 0 - 2 (FEW); URINE RBC NONE SEEN (NONE SEEN); URINE WBC NONE SEEN (0-2/hpf)
--- NOTE | 2018-08-25 21:34 | RADIOLOGY REPORT ---
EXAM: CHEST 2 VIEWS HISTORY: DIFFICULTY IN BREATHING. TECHNIQUE: Frontal and lateral views of the chest were performed. COMPARISON: 08/21/2017. FINDINGS: Heart size is normal. The lungs are hyperinflated. There is underlying emphysema. No superimposed infiltrate or pleural effusion. The osseous structures are normal. IMPRESSION: HYPERINFLATED LUNGS WITH UNDERLYING EMPHYSEMA. NO SUPERIMPOSED INFILTRATE OR PLEURAL EFFUSION. JOB NUMBER: [id number] [facility]
== END 2018-08-24 13:30 | disposition home or self-care (01) ==
LOC: ER 10:37
DX: J44.1 Chronic obstructive pulmonary disease with (acute) exacerbation (principal); J20.9 Acute bronchitis, unspecified; J44.0 Chronic obstructive pulmonary disease with (acute) lower respiratory infection; R06.00 Dyspnea, unspecified; Z99.81 Dependence on supplemental oxygen; Z87.891 Personal history of nicotine dependence
CPT/HCPCS: 71046; 80053; 81001; 83880; 85027; 85379; 93005; 93010; 94640; 96374; 99284; J2930